=== PATIENT | female | born 1990 | race Native Hawaiian/Other Pacific Islander ===

== ENCOUNTER 2021-11-03 12:34 | Emergency (ER) | payer BC ==
[~2021-11-03] VITALS: Ht 157.5 cm; Wt 77.1 kg
[2021-11-03 12:45] VITALS: TEMP 97.8
[2021-11-03 13:03] LABS: PLATELET COUNT 271 K/uL (152-353)
[2021-11-03 13:11] LABS: POTASSIUM 3.8 mmol/L (3.6-5.2); SODIUM 138 mmol/L (136-145)
[2021-11-03 13:48] LABS: PARTIAL THROMBOPLASTIN TIME 25.7 SECONDS (24.5-33.6)
[2021-11-03 14:03] VITALS: BP 114/62
== END 2021-11-03 14:00 | disposition home or self-care (01) ==
LOC: ED 12:34
PROVIDERS: Hospitalist
DX: R07.89 Other chest pain (principal)
CPT/HCPCS: 80053; 82550; 83880; 84484; 85027; 85379; 85610; 85730; 93005; 96375; 99284; J1885